=== PATIENT | male | born 1975 | race Caucasian/White ===

== ENCOUNTER 2016-09-07 20:43 | Emergency (ER) | payer OTHER ==
[~2016-09-07] VITALS: Ht 182.9 cm; Wt 114.0 kg
[2016-09-07 20:46] VITALS: Ht 182.9 cm; Wt 114.0 kg
[2016-09-07] MEDS ORDERED: PHENYLEPHRINE IV SCH (21:00)
[2016-09-07] MEDS ORDERED: LIDOCAINE 1% (MPF) 30 ML INJ INJ PRN (21:00)
[2016-09-07] MEDS ORDERED: SOD CHLORIDE 0.9% IV SCH (21:00)
[2016-09-07 21:04] VITALS: BP 158/99; PULSE 105; RESP 20; TEMP 98.2
--- NOTE | 2016-09-07 22:58 | ERD ---
ER Documentation Chief Complaint Date/Time DATE: 09/07/16 TIME: 22:54 Chief Complaint penile erection that does not go down HPI Patient is a 41-year-old male with diabetes who presents with an erection that will not go down. The patient had an injection of Trimex given today by Dr. Garcia for impotence. The patient went home and his correction never went away. He said that it has been there for [address] hours [address] this time[address] Dr. Garcia did call the emergency department told me this patient will be coming in and will need an injection of phenylephrine to fix the priapism. Upon review of old medical records the patient one previous visit to the ER in 2009. ROS All systems reviewed and are negative except as per history of present illness. Allergies Allergies: Coded Allergies: No Known Allergies (Verified Allergy, Mild, 10/02/09) PMhx/Soc Medical and Surgical Hx: pt denies Surgical Hx History of Surgery: No Anesthesia Reaction: No Hx Neurological Disorder: No Hx Respiratory Disorders: No Hx Cardiac Disorders: Yes (HTN) Hx Psychiatric Problems: No Hx Miscellaneous Medical Probl: Yes (diabetes type 2) Hx Alcohol Use: No Hx Substance Use: No Hx Tobacco Use: No Smoking Status: Unknown if ever smoked FmHx Family History: diabetes Physical Exam Vitals Vital Signs Date Time Temp Pulse Resp B/P Pulse Ox O2 Delivery O2 Flow Rate FiO2 09/07/16 21:04 98.2 105 20 158/99 100 Nasal Cannula 2.0 09/07/16 20:46 98.2 116 20 170/105 98 Physical Exam Const: No acute distress Head: Atraumatic Eyes: Normal Conjunctiva ENT: Normal External Ears, Nose and Mouth. Neck: Full range of motion..~ No meningismus. Resp: Clear to auscultation bilaterally Cardio: Regular rate and rhythm, no murmurs Abd: Soft, non tender, non distended. Normal bowel sounds Skin: No petechiae or rashes Back: No midline or flank tenderness Ext: No cyanosis, or edema Neur: Awake and alert : Patient has an erection with no skin discoloration at this time Results 24 hrs Current Medications Medications (Trade) Dose Ordered Sig/Guillermo Route PRN Reason Start Time Stop Time Status Last Admin Dose Admin Lidocaine 30 ml 30 ml ONCE PRN INJ pain 09/07/16 21:00 09/07/16 21:48 DC Phenylephrine HCl/ Sodium Chloride (Bro-Syneph/NS) 20 ml @ 0 mls/hr ONCE IV 09/07/16 21:00 09/07/16 21:48 DC Procedures/MDM Patient is a 41-year-old male presents with an acute priapism. Dr. Garcia came to the bedside and was able to aspirate 60 mL of blood from the corpus cavernosa and inject 0.5 mg of phenylephrine 3 times. This treated the priapism successfully. The patient feels better. He will be discharged home. He can return for any worsening symptoms. Critical Care: Time: 35 minutes excluding all billable procedures. Treatments/Evaluations: Close monitoring and treatment of unstable vital signs, cardiorespiratory, and neurologic status, while maintaining tight balance of fluid, respiratory, and cardiac interventions. Departure Diagnosis: Primary Impression: Priapism Condition: Fair Patient Instructions: Priapism Referrals: MAGUI GARCIA MD Additional Instructions: SPECIALIST: YOU HAVE A MEDICAL CONDITION WHICH REQUIRES YOU TO SEE A SPECIALIST WITHIN THE NEXT 1-2 DAYS. PLEASE FOLLOW UP WITH YOUR PRIMARY PHYSICIAN FOR REFFERAL.IF YOU DO NOT HAVE A PRIMARY CARE PHYSICIAN AND/OR YOU CAN NOT AFFORD TO SEE A PHYSICIAN THE FOLLOWING RESOURCES HAVE BEEN SUPPLIED TO YOU. IT IS YOUR RESPONSIBILITY TO BE SEEN BY THE SPECIALIST SILVER DARBY MD Sep 07, 2016 22:57
== END 2016-09-07 21:47 | disposition home or self-care (01) ==
LOC: E/R 20:43
DX: N48.30 Priapism, unspecified (principal); I10 Essential (primary) hypertension; E11.9 Type 2 diabetes mellitus without complications
CPT/HCPCS: J2370; Z7610